=== PATIENT | female | born 1950 | race Caucasian/White ===

== ENCOUNTER 2023-10-04 09:31 | Emergency (ER) | payer MEDICARE ==
[2023-10-04] MEDS: Cephalexin 500 MG Cap PO ONE (12:35)
== END 2023-10-04 13:05 | disposition home or self-care (01) ==
LOC: JD.ED 09:31
DX: S01.21XA Laceration without foreign body of nose, initial encounter (principal); S80.01XA Contusion of right knee, initial encounter; S60.511A Abrasion of right hand, initial encounter; S60.512A Abrasion of left hand, initial encounter; E03.9 Hypothyroidism, unspecified; W10.9XXA Fall (on) (from) unspecified stairs and steps, initial encounter
CPT/HCPCS: 12011; 73130; 99283; A9270; 99284